=== PATIENT | female | born 1980 | race African-American/Black ===

== ENCOUNTER 2017-05-30 09:54 | Emergency (ER) | payer MEDICAID ==
[~2017-05-30] VITALS: Ht 154.9 cm; Wt 82.3 kg
[2017-05-30 09:55] VITALS: BP 124/83
[2017-05-30] MEDS ORDERED: HYDROcodone/APAP 5/325 TABLET ONE (10:15)
[2017-05-30] MEDS ORDERED: HYDROcodone/APAP 5/325 TABLET PO PRN (11:00)
== END 2017-05-30 11:30 | disposition home or self-care (01) ==
LOC: ED 11:00
DX: S62.324A Displaced fracture of shaft of fourth metacarpal bone, right hand, initial encounter for closed fracture (principal); X50.1XXA Overexertion from prolonged static or awkward postures, initial encounter; Y93.89 Activity, other specified; Y99.8 Other external cause status; Y92.009 Unspecified place in unspecified non-institutional (private) residence as the place of occurrence of the external cause
CPT/HCPCS: 29125

== ENCOUNTER 2017-12-16 21:29 | Emergency (ER) | payer MEDICAID ==
[~2017-12-16] VITALS: Ht 154.9 cm; Wt 83.1 kg
[2017-12-16 22:54] VITALS: BP 125/89
== END 2017-12-16 22:57 | disposition home or self-care (01) ==
LOC: ED 22:20
DX: J20.8 Acute bronchitis due to other specified organisms (principal); B97.89 Other viral agents as the cause of diseases classified elsewhere; F17.200 Nicotine dependence, unspecified, uncomplicated
CPT/HCPCS: 71046; 99284

== ENCOUNTER 2017-12-23 03:55 | Emergency (ER) | payer MEDICAID ==
[~2017-12-23] VITALS: Ht 154.9 cm; Wt 83.2 kg
[2017-12-23 03:56] VITALS: BP 123/85
[2017-12-23 05:00] LABS: BASOPHILS # (AUTO) 0.06 x10^3/uL (0-0.1); BASOPHILS % (AUTO) 1 % (0-1); EOSINOPHILS # (AUTO) 0.08 x10^3/uL (0-0.4); EOSINOPHILS % (AUTO) 1 % (1-7); LYMPHOCYTES # (AUTO) 3.35 x10^3/uL (1-3.4); LYMPHOCYTES % (AUTO) 32 % (22-44); MD NO; MEAN CORPUSCULAR HEMOGLOBIN 31.3 pg (27.0-34.8); MEAN CORPUSCULAR HGB CONC 34.3 g/dL (32.4-35.8); MEAN CORPUSCULAR VOLUME 91.2 fL (80-100); MEAN PLATELET VOLUME 8.4 fL (7.4-10.4); MONOCYTES # (AUTO) 0.93 x10^3/uL (0.2-0.8); MONOCYTES % (AUTO) 9 % (2-9); NEUTROPHILS # (AUTO) 6.14 x10^3/uL (1.8-6.8); NEUTROPHILS % (AUTO) 58 % (42-75); PLATELET COUNT 311 x10^3/uL (130-400); RED BLOOD COUNT 5.12 x10^6/uL (3.82-5.3); RED CELL DISTRIBUTION WIDTH 13.7 % (9.6-15.2)
[2017-12-23] MEDS ORDERED: MAALOX/HYOSCYAMINE/LIDOCAINE 45 ML BTL PO ONE (05:00)
[2017-12-23] MEDS ORDERED: ONDANSETRON ODT 4 MG PO ONE (05:00)
[2017-12-23 05:02] LABS: ALANINE AMINOTRANSFERASE 33 U/L (12-78); ALBUMIN 3.5 g/dL (3.4-5.0); ANION GAP 7 mmol/L (5-15); CALCIUM 8.4 mg/dL (8.5-10.1); CHLORIDE 104 mmol/L (98-107); CREATININE 0.97 mg/dL (0.55-1.02)
[2017-12-23 05:06] LABS: ALKALINE PHOSPHATASE 77 U/L (45-117); BILIRUBIN,TOTAL 0.4 mg/dL (0.2-1.0); TOTAL PROTEIN 6.8 g/dL (6.4-8.2)
[2017-12-23 05:06] LABS: MICROSCOPIC NOT IND
[2017-12-23 05:09] LABS: CULTURE INDICATED? NO
[2017-12-23] MEDS ORDERED: MAALOX/HYOSCYAMINE/LIDOCAINE 45 ML BTL ONE (05:21)
[2017-12-23] MEDS ORDERED: ONDANSETRON ODT 4 MG ONE (05:21)
== END 2017-12-23 06:06 | disposition home or self-care (01) ==
LOC: ED 04:18
DX: K21.9 Gastro-esophageal reflux disease without esophagitis (principal); R10.10 Upper abdominal pain, unspecified; F17.210 Nicotine dependence, cigarettes, uncomplicated
CPT/HCPCS: 36415; 80053; 81003; 83690; 84703; 85025; 93005; 99285; Q0162

== ENCOUNTER 2018-04-08 18:45 | Inpatient (IN) | payer MEDICAID, OTHER ==
[~2018-04-08] VITALS: Ht 157.5 cm; Wt 80.5 kg
[2018-04-08 19:42] LABS: BASOPHILS # (AUTO) 0.06 x10^3/uL (0-0.1); BASOPHILS % (AUTO) 0 % (0-1); EOSINOPHILS # (AUTO) 0.05 x10^3/uL (0-0.4); EOSINOPHILS % (AUTO) 0 % (1-7); LYMPHOCYTES # (AUTO) 1.88 x10^3/uL (1-3.4); LYMPHOCYTES % (AUTO) 11 % (22-44); MD NO; MEAN CORPUSCULAR HEMOGLOBIN 31.2 pg (27.0-34.8); MEAN CORPUSCULAR HGB CONC 34.2 g/dL (32.4-35.8); MEAN CORPUSCULAR VOLUME 91.3 fL (80-100); MEAN PLATELET VOLUME 8.5 fL (7.4-10.4); MONOCYTES # (AUTO) 1.06 x10^3/uL (0.2-0.8); MONOCYTES % (AUTO) 6 % (2-9); NEUTROPHILS # (AUTO) 13.73 x10^3/uL (1.8-6.8); NEUTROPHILS % (AUTO) 82 % (42-75); PLATELET COUNT 276 x10^3/uL (130-400); RED BLOOD COUNT 5.04 x10^6/uL (3.82-5.3); RED CELL DISTRIBUTION WIDTH 13.9 % (9.6-15.2)
[2018-04-08 19:45] LABS: ALANINE AMINOTRANSFERASE 27 U/L (12-78); ALBUMIN 3.5 g/dL (3.4-5.0); ANION GAP 8 mmol/L (5-15); CALCIUM 8.6 mg/dL (8.5-10.1); CHLORIDE 104 mmol/L (98-107); CREATININE 1.09 mg/dL (0.55-1.02)
[2018-04-08 19:49] LABS: ALKALINE PHOSPHATASE 95 U/L (45-117); BILIRUBIN,TOTAL 0.8 mg/dL (0.2-1.0)
[2018-04-08] MEDS ORDERED: MORPHINE SULFATE 4 MG/ML, 1ML IVPush PRN ×2 (20:00→23:30)
[2018-04-08] MEDS ORDERED: ACETAMINOPHEN 325 MG TABLET PO ONE (20:00)
[2018-04-08] MEDS ORDERED: ACETAMINOPHEN 325 MG TABLET ONE (20:29)
[2018-04-08] MEDS ORDERED: MORPHINE SULFATE 4 MG/ML, 1ML ONE (21:47)
[2018-04-08] MEDS ORDERED: OMNIPAQUE 350 MG/ML, 100ML BOTTLE ONE (22:46)
[2018-04-08 23:24] LABS: MICROSCOPIC INDICATED
[2018-04-08 23:28] LABS: CLUE CELLS PRESENT (NONE SEEN)
[2018-04-08 23:30] LABS: WET PREP WBCS MODERATE (FEW)
[2018-04-08] MEDS ORDERED: SODIUM CHLORIDE FLUSH 10ML SYR IVF PRN (23:30)
[2018-04-08] MEDS ORDERED: CEFTRIAXONE 1,000 MG IV ONE (23:30)
[2018-04-08] MEDS ORDERED: AZITHROMYCIN 500 MG TABLET PO ONE (23:30)
[2018-04-08] MEDS ORDERED: PROMETHAZINE 25 MG/ML, 1ML IM PRN (23:30)
[2018-04-08] MEDS ORDERED: CEFTRIAXONE PMX 1GM/50ML 50 ML ONE (23:36)
[2018-04-08] MEDS ORDERED: AZITHROMYCIN 500 MG TABLET ONE (23:36)
[2018-04-08 23:38] LABS: CULTURE INDICATED? NO
[2018-04-09 00:43] VITALS: BP 92/66
[2018-04-09] MEDS: SODIUM CHLORIDE 0.9% 1,000 ML IV SCH ×2 (03:30→13:21)
[2018-04-09] MEDS: OXYcodone/APAP 5/325MG TABLET PO PRN ×4 (03:31→20:59)
[2018-04-09 07:34] VITALS: BP 89/60
[2018-04-09] MEDS ORDERED: PHARMACOKINETIC MONITORING MC PRN (13:00)
[2018-04-09 13:14] VITALS: BP 88/60
[2018-04-09] MEDS: CLINDAMYCIN PMX 900MG/50ML 50 ML IV SCH ×2 (13:20→20:59)
[2018-04-09] MEDS ORDERED: GENTAMICIN 300 MG in SODIUM CHLORIDE 0.9% 100 ML IV SCH (14:00)
[2018-04-09] MEDS ORDERED: GENTAMICIN PER PHARMACY MC PRN (14:00)
[2018-04-09 19:09] VITALS: BP 97/60
[2018-04-10 02:36] LABS: BASOPHILS # (AUTO) 0.03 x10^3/uL (0-0.1); BASOPHILS % (AUTO) 1 % (0-1); EOSINOPHILS # (AUTO) 0.14 x10^3/uL (0-0.4); EOSINOPHILS % (AUTO) 2 % (1-7); LYMPHOCYTES # (AUTO) 1.94 x10^3/uL (1-3.4); LYMPHOCYTES % (AUTO) 30 % (22-44); MD NO; MEAN CORPUSCULAR HEMOGLOBIN 31.3 pg (27.0-34.8); MEAN CORPUSCULAR HGB CONC 34.2 g/dL (32.4-35.8); MEAN CORPUSCULAR VOLUME 91.3 fL (80-100); MEAN PLATELET VOLUME 8.2 fL (7.4-10.4); MONOCYTES # (AUTO) 0.64 x10^3/uL (0.2-0.8); MONOCYTES % (AUTO) 10 % (2-9); NEUTROPHILS % (AUTO) 58 % (42-75); PLATELET COUNT 224 x10^3/uL (130-400); RED BLOOD COUNT 4.25 x10^6/uL (3.82-5.3); RED CELL DISTRIBUTION WIDTH 14.1 % (9.6-15.2)
[2018-04-10 02:52] VITALS: BP 94/62
[2018-04-10] MEDS: OXYcodone/APAP 5/325MG TABLET PO PRN (02:53)
[2018-04-10] MEDS: SODIUM CHLORIDE 0.9% 1,000 ML IV SCH (02:54)
[2018-04-10] MEDS: CLINDAMYCIN PMX 900MG/50ML 50 ML IV SCH (04:55)
[2018-04-10 07:11] VITALS: BP 92/59
[2018-04-10] MEDS ORDERED: AZIT250T PO (10:43)
[2018-04-10] MEDS ORDERED: AMOX1TAB64 PO (10:44)
== END 2018-04-10 13:06 | disposition home or self-care (01) | DRG 759 ==
LOC: ED 22:15 → EDIP 23:26 → 3NW 04-09 00:04
PROVIDERS: ADMIT Obstetrics & Gynecology; ATTEND Obstetrics & Gynecology
PROC: 0T9B70Z Drainage of Bladder with Drainage Device, Via Natural or Artificial Opening (ICD-10-PCS; principal; 2018-04-08)
DX: N73.0 Acute parametritis and pelvic cellulitis (principal); Z88.1 Allergy status to other antibiotic agents; D72.829 Elevated white blood cell count, unspecified; J45.909 Unspecified asthma, uncomplicated; N85.2 Hypertrophy of uterus; N92.6 Irregular menstruation, unspecified; Z97.5 Presence of (intrauterine) contraceptive device; Z98.891 History of uterine scar from previous surgery
CPT/HCPCS: 36415; 74177; 76830; 76857; 80053; 80170; 81001; 84703; 85025; 87210; 87491; 87591; 87808; 96374; 96375; G0378; J0696; Q9967; J1580; J7030

== ENCOUNTER 2020-02-19 02:19 | Emergency (ER) | payer MEDICAID ==
[~2020-02-19] VITALS: Ht 154.9 cm; Wt 81.6 kg
[~2020-02-19 02:19] MED LIST: AMOX1TAB64 PO; AZIT250T PO
[2020-02-19] MEDS ORDERED: LORazepam 1MG TABLET ONE (03:17)
[2020-02-19] MEDS ORDERED: ALBUTEROL SULFATE 2.5 MG/3 ML ONE (03:18)
[2020-02-19] MEDS ORDERED: ALBUTEROL SULFATE 2.5 MG/3 ML NPPB ONE (03:30)
[2020-02-19] MEDS ORDERED: LORazepam 1MG TABLET PO ONE (03:30)
[2020-02-19 05:16] VITALS: BP 101/63
== END 2020-02-19 05:18 | disposition home or self-care (01) ==
LOC: ED 02:39
DX: R06.00 Dyspnea, unspecified (principal); F41.1 Generalized anxiety disorder; F10.120 Alcohol abuse with intoxication, uncomplicated; F17.210 Nicotine dependence, cigarettes, uncomplicated; R07.89 Other chest pain; K21.9 Gastro-esophageal reflux disease without esophagitis; Y90.9 Presence of alcohol in blood, level not specified
CPT/HCPCS: 71045; 93005; 94640; 99283; J7613